=== PATIENT | female | born 1950 ===

== ENCOUNTER 2024-06-16 13:04 | Outpatient (RCR) | payer MEDICARE | END 2024-06-17 | LOC: PT 13:04 | PROVIDERS: ATTEND Physician Assistant | DX: Z47.89 Encounter for other orthopedic aftercare (principal); S46.011D Strain of muscle(s) and tendon(s) of the rotator cuff of right shoulder, subsequent encounter ==

== ENCOUNTER 2024-09-15 14:00 | Outpatient (RCR) | payer MEDICARE | END 2024-09-17 | LOC: PT 14:00 | PROVIDERS: ATTEND Physician Assistant | DX: Z47.89 Encounter for other orthopedic aftercare (principal); S46.011D Strain of muscle(s) and tendon(s) of the rotator cuff of right shoulder, subsequent encounter ==

== ENCOUNTER 2024-10-13 14:00 | Outpatient (RCR) | payer MEDICARE | END 2024-10-18 | LOC: PT 14:00 | PROVIDERS: ATTEND Physician Assistant | DX: Z47.89 Encounter for other orthopedic aftercare (principal); S46.011D Strain of muscle(s) and tendon(s) of the rotator cuff of right shoulder, subsequent encounter ==

== ENCOUNTER → 2024-11-17 | Outpatient (RCR) | payer MEDICARE | LOC: PT 10-20 12:02 | PROVIDERS: ATTEND Physician Assistant | DX: Z47.89 Encounter for other orthopedic aftercare (principal); S46.011D Strain of muscle(s) and tendon(s) of the rotator cuff of right shoulder, subsequent encounter ==